=== PATIENT | male | born 1960 | race Caucasian/White ===

== ENCOUNTER → 2017-03-07 | Outpatient (CLI) | payer MEDICAID ==
--- NOTE | 2017-03-07 15:42 | US ---
EXAMINATION TYPE: US kidneys/renal and bladder DATE OF EXAM: 03/07/2017 COMPARISON: NONE CLINICAL HISTORY: R31.9 Hematuria, M54.9 Back pain. Macroscopic hematuria, left back pain EXAM MEASUREMENTS: Right Kidney: 12.5 x 6.4 x 6.5 cm Left Kidney: 11.7 x 6.3 x 6.7 cm Right Kidney: cystic appearing lesion seen in mid renal sinus = 2.1 x 2.0 x 2.1 cm Left Kidney: Lower pole echogenic focus seen in renal sinus = 0.6 cm. Hypoechoic lesion seen in lowe r pole posterior to echogenic focus = 2.2 x 1.4 x 1.2 cm Bladder: mildly distended Bilateral Jets seen Technologist ash 2.1 cm round hypoechoic anechoic lesion centrally in right kidney with increased t hrough transmission favor simple cyst. Technologist ash 6 mm shadowing hyperechoic focus lower pole level left kidney felt to reflect kajal l calculus. There is prominent calyx at this level. Bladder is poorly distended and thus suboptimally evaluated. Bilateral distal ureter jets are appreci ated. IMPRESSION: Suspect 6 mm left lower pole renal calyceal calculus. There is calyceal dilatation noted. There is no nspecific 2 cm central right renal lesion in which solid mass or neoplasm is not excluded. Advise fol low-up multi phase CT without and with IV contrast to evaluate both levels.
== END | disposition home or self-care (01) ==
LOC: RADUSWWP 14:23
PROVIDERS: ATTEND Family Medicine
DX: N28.89 Other specified disorders of kidney and ureter (principal); R31.9 Hematuria, unspecified; M54.9 Dorsalgia, unspecified
CPT/HCPCS: 76770

== ENCOUNTER → 2017-04-09 | Outpatient (CLI) | payer MEDICAID ==
--- NOTE | 2017-04-09 09:06 | CT ---
EXAMINATION TYPE: CT foot LT wo con DATE OF EXAM: 04/09/2017 COMPARISON: NONE HISTORY: Lt foot pain, no known injury CT DLP: 187.1 mGycm Automated exposure control for dose reduction was used. FINDINGS: Hypertrophic change and narrowing of the tarsometatarsal junctions are noted. There is a hypertrophic spur along the lateral margin of the calcaneus. Arthropathy of the first MTP joint with no erosive change. No acute fracture or dislocation. Subtalar joint is maintained. Hypertrophic changes of the Achilles insertion of the calcaneus noted and there is a small plantar calcaneal spur. There is soft tissue edema along the medial aspect of the ankle joint posteriorly extending into the foot. IMPRESSION: NO ACUTE FRACTURE. HYPERTROPHIC CHANGES AND ARTHROPATHY DISCUSSED ABOVE WITH NO EROSIVE CHANGE. NONSPECIFIC SOFT TISSUE EDEMA INVOLVING THE MEDIAL ASPECT OF THE ANKLE AND FOOT. THIS COULD BE REACTI VE EDEMA. CORRELATE CLINICALLY TO EXCLUDE CELLULITIS..
== END | disposition home or self-care (01) ==
LOC: RADCTMAIN 08:35
PROVIDERS: ATTEND Family Medicine
DX: M19.072 Primary osteoarthritis, left ankle and foot (principal)

== ENCOUNTER → 2017-04-19 | Outpatient (CLI) | payer MEDICAID ==
--- NOTE | 2017-04-19 13:35 | CT ---
EXAMINATION TYPE: CT abdomen wo/w con DATE OF EXAM: 04/19/2017 REFERENCE: Previous ultrasound examination dated 03/07/2017. HISTORY: D41.01 Kidney lesion HISTORY: Rt renal lesion REFERENCE: NONE CT DLP: 3866.7 mGy Automated exposure control for dose reduction was used. TECHNIQUE: Helical acquisition through the abdomen and pelvis was obtained following the oral ingesti on of with Oral Contrast and following intravenous administration of 100 mL of Omnipaque 300. The deonna a was reformatted in axial, coronal and sagittal projections. FINDINGS: There is some atelectatic change at the right lung base. There is no pleural or pericardia l fluid. The heart is not enlarged. Within the abdomen, the liver, spleen and gallbladder are normal. There are several small splenule ad jacent to the spleen. Both adrenal glands are normal. The pancreas is normal. There are parapelvic cysts present bilaterally. No solid neoplasm is seen. No renal calculus is seen. Visualized bowel loops are unremarkable. There is no evidence of free fluid or free air. There is mild wedging of the T9 vertebral body. There is facet arthropathy in the L5-S1 facets. No andreina ny destructive lesion is seen. IMPRESSION: 1. NO EVIDENCE OF NEPHROLITHIASIS OR RENAL MASS. 2. PARAPELVIC CYSTS PRESENT BILATERALLY. 3. DEGENERATIVE CHANGES IN THE L5-S1 FACETS WELL A CHRONIC WEDGE COMPRESSION DEFORMITY OF THE T 9 VERTEBRAL BODY.
== END | disposition home or self-care (01) ==
LOC: RADCTMAIN 11:55
PROVIDERS: ATTEND Urology
DX: N28.1 Cyst of kidney, acquired (principal)
CPT/HCPCS: 74170; Q9967

== ENCOUNTER → 2023-02-28 | Outpatient (CLI) | payer OTHER ==
--- NOTE | 2023-02-28 16:33 | US ---
EXAMINATION TYPE: US kidneys/renal and bladder DATE OF EXAM: 02/28/2023 COMPARISON: CLINICAL INDICATION: Male, 62 years old with history of R31.9 HEMATURIA, R10.9 FLANK PAIN; Increased urgency and frequency. Left side pain. No hx stones. EXAM MEASUREMENTS: Right Kidney: 12.0 x 5.6 x 6.7 cm Left Kidney: 12.4 x 5.7 x 6.3 cm Post Void Residual Volume: 295.7 mL Right Kidney: Possible echogenic focus lower pole = 0.6 cm, twinkling artifact seen Left Kidney: No hydronephrosis or masses seen Bladder: distended, anechoic Bilateral Jets not seen Abnormal Post Void Residual IMPRESSION: 1. No evidence for obstructive uropathy. 2. Right nonobstructing calculus versus vascular calcification. 3. Elevated Post void residual of 296 cc.
--- NOTE | 2023-03-01 06:47 | CT ---
EXAMINATION TYPE: CT abdomen pelvis w con CT DLP: 2827.2 mGycm, Automated exposure control for dose reduction was used. DATE OF EXAM: 02/28/2023 3:35 PM COMPARISON: CT abdomen pelvis most recent from 04/19/2017, renal ultrasound 02/28/2023. CLINICAL INDICATION:Male, 62 years old with history of R31.9 HEMATURIA, UNSPECIFIED; HEMATURIA TECHNIQUE: Standard CT of the abdomen and pelvis following the administration of 100 cc of Isovue 3 00 IV contrast material and oral contrast. Coronal and sagittal reformats were performed. FINDINGS: LOWER CHEST: Linear scarring and/or atelectasis within the lingula and right lower lobe. Calcified gr anuloma within the lingula. ABDOMEN LIVER: Diffusely hypoattenuating parenchyma. GALLBLADDER AND BILE DUCTS: Unremarkable. PANCREAS: Unremarkable. SPLEEN: Unremarkable. ADRENAL GLANDS: Unremarkable. KIDNEYS AND URETERS: No evidence of hydronephrosis or renal calculus. The kidneys enhance symmetrical ly. Retroaortic left renal vein. Nonspecific bilateral perinephric fat stranding. Contrast is demonst rated within both collecting systems on the delayed phase. Left renal sinus cyst measuring up to 2.3 cm. Additional smaller renal sinuses bilaterally again demonstrated. PELVIS BLADDER: Unremarkable REPRODUCTIVE: Unremarkable. ABDOMEN & PELVIS STOMACH AND BOWEL: Stomach and duodenum are unremarkable. No evidence of bowel obstruction. Enteric c ontrast reaches the hepatic flexure. No focal bowel wall thickening or surrounding inflammatory perez es. PERITONEUM: No evidence of pneumoperitoneum or free fluid. VASCULATURE: No evidence of aortic aneurysm. MUSCULOSKELETAL: No acute osseous abnormalities. Mild disc degeneration changes are present throughou t the thoracolumbar spine. LYMPH NODES: No gross evidence for lymphadenopathy. SOFT TISSUE/ABDOMINAL WALL: Tiny fat filled umbilical hernia. IMPRESSION: No acute abdominal/pelvic process. No evidence for nephrolithiasis or obstructive uropathy. Renal sin us cysts redemonstrated bilaterally.
== END | disposition home or self-care (01) ==
LOC: RADCTMAIN 13:11
PROVIDERS: ATTEND Family Medicine
DX: Q61.02 Congenital multiple renal cysts (principal); N39.43 Post-void dribbling; N48.89 Other specified disorders of penis; R31.9 Hematuria, unspecified; R39.15 Urgency of urination; R35.0 Frequency of micturition
CPT/HCPCS: 76770; 74177; Q9967